=== PATIENT | male | born 1995 | race Hispanic/Latino ===

== ENCOUNTER 2020-08-18 01:28 | Emergency (ER) | payer SELFPAY ==
[2020-08-18] MEDS ORDERED: Ondansetron PF 4 MG/2 ML Vial ONE (01:42)
== END 2020-08-18 02:53 | disposition home or self-care (01) ==
LOC: ERS 01:28
DX: F10.129 Alcohol abuse with intoxication, unspecified (principal); Y90.8 Blood alcohol level of 240 mg/100 ml or more
CPT/HCPCS: 80307; 96374; J2405